=== PATIENT | female | born 1935 | race Caucasian/White ===

== ENCOUNTER 2016-11-21 10:43 | Day surgery (SDC) | payer MEDICARE, OTHER ==
[~2016-11-21] VITALS: Ht 165.1 cm; Wt 93.0 kg
[~2016-11-21 10:43] MED LIST: 0.9% Sodium Chloride 1,000 ML IV SCH; ASCO500T9 PO; CA C1TAB28 PO; CHOL10008 PO; LETR2.5T4 PO; LEVO112T4 PO; LISI-567 PO; LISI10TA2 PO; MULT-36 PO; PROP10DR4 OP; RANI150T11 PO; SIMV10TA4 PO; Sodium Chloride LOK Flush 10 mL Syringe IV PRN; fentaNYL-PF 50 mCg/mL 2 mL Inj IVPUSH PRN
[2016-11-21 11:18] VITALS: BP 155/91; PULSE 87; RESP 16; O2SAT 98
--- NOTE | 2016-11-21 12:53 | PCM.ENDCOL ---
Colonoscopy Date of Service: Nov 21, 2016 Physician Yoni Murrieta MD Pre Procedure Diagnosis: Screening and personal history of colon polyp Post Procedure Dx & Findings: Polyp hemorrhoids diverticuli Procedure Colonoscopy Prep adequate Withdrawal time 12 minutes After unremarkable rectal examination the Olympus video colonoscope was inserted patient's anal canal and was advanced to cecum. Landmarks were identified including the ileocecal valve and appendiceal orifice. Scope was withdrawn systematically. Visualized colonic mucosa showed healthy shiny mucosa with normal healthy-appearing vasculature. In the ascending colon, there were 2 polyps. One was 3 mm in size and the other was 1 mm in size. 3 mm polyp was removed completely using cold snare. 1 mm polyp was removed completely using cold forceps. From the descending colon into the distal sigmoid colon, multiple midsized diverticuli noted. In the rectum retroflexion was done which showed hemorrhoids. Anal canal was inspected carefully on the way out and hemorrhoids noted. Impression Polyps 2 status post complete removal Diverticuli Personal history of colon polyps Hemorrhoids Recommendation Repeat colonoscopy in 5 years Diverticular diet Presedation Assessment Risks and Benefits Informed consent was obtained from the patient after all risks and benefits including but not limited to drug reaction, infection, pain, bleeding, perforation, as well as alternatives were discussed. Patient monitoring Continuous pulse oximetry, cardiac monitoring, blood pressure monitoring, IV access, and oxygen at 2L per nasal cannula. Periprocedural Fentanyl: Fentanyl 100mcg Incrementally Midazolam: Midazolam 4mg Incrementally Complications There were no periprocedural complications identified. Post Procedure Plan Post Procedure Recommendations 1. Restrict activities today. 2. Resume normal activities in the morning. 3. Resume medications. 4. Patient informed of normal post procedure side effects as bloating, drowsiness, blood streaking in the stool. 5. average risk CRCS. If colon polyps come back as: -Hyperplastic- can repeat colonoscopy in 10 years -Tubular adenoma- repeat colonoscopy in 5 years -Tubulovillous/villous adenoma- repeat colonoscopy in 3 years -If any dysplasia- return to clinic as soon as possible 6. Please don't hesitate to call me with any questions. Yoni Murrieta MD Nov 21, 2016 12:53
[2016-11-21 12:56] VITALS: BP 163/80; PULSE 56; RESP 14; O2SAT 100
[2016-11-21 13:06] VITALS: BP 152/75; PULSE 60; RESP 14; O2SAT 100
[2016-11-21 13:16] VITALS: BP 158/78; PULSE 63; RESP 16; O2SAT 100
--- NOTE | 2016-11-22 14:02 | PATH ---
SURGICAL PATHOLOGY Attending Physician:Yoni Murrieta M.D. CASE STATUS: Signed Out PATIENT NAME: CLAIRE GREENE PID: [id number] : 1935 DATE COLLECTED:11/21/2016 22:22 SPECIMEN: Colon, Biopsy CLINICAL HISTORY: COLON POLYPS 1). ASCENDING COLON POLYP FINAL DIAGNOSIS: 1.ASCENDING COLON POLYP: TUBULAR ADENOMA. ICD10 CODE D12.6 GROSS DESCRIPTION: The specimen is received in one formalin filled container labeled with the patient's name, sublabeled "ascending colon polyp" and consists of 3 portions of tissue which aggregate to 0.3 x 0.3 x 0.3 CM. The specimen is entirely submitted in one cassette. 11/21/2016 [facility] MICRO DESCRIPTION: See diagnosis. ICD-9 CODES: CPT CODES: 1: 71684 Electronically Signed Out Kolby Sainz MD [facility] Pathology [facility] [address], [place] [address] Technical component performed at [facility], [facility] [address], [place], [address]
== END 2016-11-21 23:59 | disposition home or self-care (01) ==
LOC: END 10:43
PROVIDERS: ATTEND Internal Medicine
DX: Z12.11 Encounter for screening for malignant neoplasm of colon (principal); D12.2 Benign neoplasm of ascending colon; Z86.010 Personal history of colon polyps; K57.30 Diverticulosis of large intestine without perforation or abscess without bleeding; K64.9 Unspecified hemorrhoids; I48.0 Paroxysmal atrial fibrillation; E11.9 Type 2 diabetes mellitus without complications; I10 Essential (primary) hypertension; E03.9 Hypothyroidism, unspecified; Z85.3 Personal history of malignant neoplasm of breast
CPT/HCPCS: 45380; 45385; 88305; 99153; G0500; J2250; J3010; J7030

== ENCOUNTER 2017-03-10 10:36 | Observation (INO) | payer MEDICARE, OTHER ==
[~2017-03-10] VITALS: Ht 166.4 cm; Wt 92.2 kg
[2017-03-10] VITALS (7 sets, daily range): BP systolic 153–200; BP diastolic 74–94; PULSE 62–72; RESP 14–18; O2SAT 95–99
[~2017-03-10 10:36] MED LIST changes: -0.9% Sodium Chloride 1,000 ML IV SCH; -ASCO500T9 PO; -CA C1TAB28 PO; -LISI10TA2 PO; -MULT-36 PO; -PROP10DR4 OP; -RANI150T11 PO; -Sodium Chloride LOK Flush 10 mL Syringe IV PRN; -fentaNYL-PF 50 mCg/mL 2 mL Inj IVPUSH PRN
--- NOTE | 2017-03-10 11:09 | ED.REPORT ---
HPI-Neurologic Deficit Date of Service Mar 10, 2017 ED Provider: Amanda Ellis MD The pt is a 82 y/o female w/ a hx of hypothyroidism, HTN, breast cancer, and hyperlipidemia presenting to the ED complaining of R facial numbness. When she woke up this morning she was feeling dizzy and went to her PCP. At the doctor's office her scalp being feeling "prickly"and the R side of her face began to feel numb shortly after. She is not experiencing any dizziness currently but does report drifting to the left while walking. She notes the scalp tingling present for over a month. She believes there may have been some numbness to the side of her face last night but she is uncertain. She reports Letrozole causing her to experience severe dizziness and her legs and arms feeling numb for 8 hours after. She was also diagnosed w/ vertigo 4 weeks ago by her PCP. Nursing Notes Stated Complaint: POSS STROKE Chief Complaint: Neuro Symptoms/ Deficits Nursing Notes Reviewed: Yes Allergies: Coded Allergies: Penicillins (Verified Allergy, Severe, ANAPHYLAXIS, 03/10/17) Sulfa (Sulfonamide Antibiotics) (Verified Allergy, Severe, RASH, ANAPHYLAXIS, 03/10/17) aspirin (Verified Allergy, Severe, ORAL SWELLING, ANAPHYLAXIS, 03/10/17) bacitracin (Verified Allergy, Severe, RASH, 03/10/17) codeine (Verified Allergy, Severe, BURNING PAIN, RASH, 03/10/17) gramicidin D (Verified Allergy, Severe, RASH, 03/10/17) iodine (Verified Allergy, Severe, PAIN, REDNESS, ANAPHYLAXIS, 03/10/17) letrozole (Verified Allergy, Severe, "hallucinations, dizziness", 03/10/17) patient with reaction to letrozole made per the [employer]. patient able to take letrozole that she obtains per [employer] that is not made by the [employer]. Aminoglycosides (Verified Allergy, Unknown, SWELLING,REDNESS, 03/10/17) azithromycin (Verified Allergy, Unknown, 03/10/17) neomycin (Verified Allergy, Unknown, SWELLING, REDNESS, RASH, 03/10/17) polymyxin B (Verified Allergy, Unknown, SWELLING, REDNESS, RASH, 03/10/17) tetanus and diphtheria toxoids (Verified Adverse Reaction, Severe, SWELLING AT INJ SITE, 03/10/17) Scheduled Ascorbate Calcium (Vitamin C) 500 Mg Tablet 250 MG PO BID Cholecalciferol (Vitamin D3) (Vitamin D3) 1,000 Unit Tab.chew 1,000 UNIT PO DAILY Letrozole (Letrozole) 2.5 Mg Tablet 2.5 MG PO DAILY Levothyroxine (Levothyroxine) 112 Mcg Tablet 112 MCG PO DAILY Lisinopril (Lisinopril) 20 Mg Tablet 20 MG PO DAILY Multivitamin (Multivitamins) 1 Each Capsule 1 EACH PO DAILY Ranitidine (Ranitidine) 150 Mg Capsule 150 MG PO BID Risedronate Sodium (Risedronate Sodium) 35 Mg Tablet 35 MG PO every Friday Simvastatin (Simvastatin) 10 Mg Tablet 10 MG PO HS General Time Seen by Provider: 11:00 Chief Complaint Other (R facial numbness ) Hx Obtained From: Patient Arrived By: Walk-in Sudden in Onset?: No Recent Healthcare: No recent hospitalization, Recent doctor visit Similar Sx Previous: Yes Risk Factors NIH Stroke Scale Level of Consciousness: Alert and responsive (0) Ask Month & Age: Both questions right (0) Open/Close Eyes/Hand Pyridine Recovery Operator: Performs both tasks (0) Horizontal EO Movements: None (0) Visual Morel: No visual loss (0) Facial Palsy: Normal symmetry (0) Right Arm Motor Drift (10s): No drift 10 sec (0) Left Arm Motor Drift (10s): No drift 10 sec (0) Right Leg Motor Drift (5s): No drift 5 sec (0) Left Leg Motor Drift (5s): No drift 5 sec (0) Limb Ataxia FNF/Heel-Orta: No ataxia (0) Sensation (Arms/Legs/Face): Pinprick less sharp (1) Language Aphasia: No aphasia, normal (0) Dysarthria: No dysarthria, normal (0) Extinction/Inattention: No exctinct/inattent (0) NIHSS Score: 1 Time NIHSS Performed: 11:30 Date NIHSS Performed: Mar 10, 2017 Past Medical History Past Medical History Hypothyroidism Cataracts HTN Breast cancer Arthritis Jaundice w/ hepatitis High cholesterol Past Surgical History Bilat masectomy cholecystectomy Hysterectomy Smoking History Unknown if Ever Smoker Ambulatory Status Independent Review of Systems Pt had a carotid ultrasound done a month ago when she was diagnosed w/ vertigo but has not had any head imaging done. Neurologic: Reports: Dizziness, Numbness (R side of face ), Problem walking ( Drifting to left ) Complete sys rev & neg: except as marked. Physical Exam Initial Vital Signs Vital Signs (First) Date Time Temp Pulse Resp B/P Pulse Ox O2 Delivery O2 Flow Rate FiO2 03/10/17 10:45 36.6 72 14 200/88 97 Room Air Initial VS: Reviewed General/Constitutional: Awake, Alert Behavior: Positive: Anxious, Tearful Head / Eyes: Atraumatic, Normocephalic Respiratory / Chest: Atraumatic, Breath sounds NL, Breath sounds = bilat, No respiratory distress, No rales, No rhonchi, No wheezing Cardiovascular: Heart rate NL, Regular rhythm, Heart sounds NL Neurologic: Oriented X3, Speech NL Very subtle R sided facial droop that does not include forehead Slight decrease in sensation in R forehead but not lower face Tingling sensation over entire scalp ENT: Atraumatic, Airway patent Neck: Atraumatic, Supple, Full range of motion Abdomen: Atraumatic, Soft, Non-tender Upper Extremity / MS: Atraumatic, Inspection NL, Full range of motion, Neurologic intact, Vascular intact Lower Extremity / Pelvis / MS: No deformity, Vascular intact RLE described as heavy Difficutly w/ heel to orta using L leg Skin: Atraumatic, Color NL, No rash, Warm, Dry Psychiatric: Affect NL, Mood NL Interpretation & Diagnostics Lab Results Interpretation Result Diagram: 03/10/17 1220 Test 03/10/17 12:20 White Blood Count 7.7th/mm3 (3.8-10.1) Red Blood Count 4.28mil/mm3 (3.90-5.20) Hemoglobin 13.2g/dL (12.0-15.6) Hematocrit 40.3% (35.0-46.0) Mean Corpuscular Volume 94.2fL (81-100) Mean Corpuscular Hemoglobin 30.8pg (27.0-35.0) Mean Corpuscular Hemoglobin Concent 32.8% (32.0-37.0) Red Cell Distribution Width 13.5% (12.3-15.4) Platelet Count 214bil/L (150-400) Neutrophils (%) (Auto) 63.8% (40-74) Lymphocytes (%) (Auto) 27.0% (14-46) Monocytes (%) (Auto) 6.3% (4-12) Eosinophils (%) (Auto) 2.5% (0-5) Basophils (%) (Auto) 0.3% (0-3) Troponin T 0.010ug/L (0.0-0.011) Triglycerides Level 150mg/dL (0-149) Cholesterol Level 160mg/dL (100-199) LDL Cholesterol, Calculated 77.000mg/dL (0-99) VLDL Cholesterol 30.000mg/dL HDL Cholesterol 53mg/dL (>39) Cholesterol/HDL Ratio 3.02 (0.0-4.4) Hold Dill Top Tube Received (Received) ECG Interpretation ECG Interpretation: Rate 61 Normal sinus rhythm LVH with secondary repol abnrm No ischemic Time: 11:43 Interpreted by: ED physician CT Head Interpretation IMPRESSION: No acute intracranial disease process. Dictated by: Dennise Penny MD, PhD on 03/10/2017 at 12:09 Approved by: Dennise Penny MD, PhD on 03/10/2017 at 12:11 Study: Head CT no contrast Interpretation / Wet Read by: Interpret - Radiologist Re-Eval/Medical Decision Med Decision/Clinical Course 12-year-old woman presents with odd constellation of neurologic symptoms entire scalp sensory abnormalities right side of the face with decreased motor decreased sensory very minimal right arm seems essentially normal right leg perhaps a "little more heavy" perhaps difficulty walking but then has baseline difficulties with balance and difficulty walking. At this point I am concerned that there is a mild right facial droop and with the odd constellation of symptoms stroke versus TIA or the most likely options. We will opt to admit her for additional stroke workup including stroke protocol MRI. Of note she did have carotid ultrasounds done about a month ago and they were unremarkable Discussed my concerns, findings and recommendations with her all questions answered This certainly is not a discrete onset with a clear time nor definitive diagnosis she does not meet any criteria for TPA for stroke Source of Hx: Old records Re-Evaluation/Progress : Time of Eval: 13:53 Re-Evaluation/Progress Note: Pt rechecked. Informed pt of need for admission. Pt understands and agrees with plan for admission. All questions addressed. Consultation : Referral / Consult Name: Shaw Beltrán MD Consulted With: Hospitalist Call Returned at: 13:30 Lead Neurodiagnostic Technologist: Will see patient, Agrees with eval, Agrees with plan, Accepts admit Counseled Regarding: Diagnosis, Lab results, Need for admission Discharge & Departure Impression: Primary Impression: Transient ischemic attack (TIA) Transient cerebral ischemia type: unspecified Qualified Code: G45.9 - Transient cerebral ischemic attack, unspecified Disposition: ADMITTED TO HOSPITAL Discharge Condition All VS Reviewed: Yes Condition: Stable Referrals: Nomi Fall DO (PCP) [facility] Attestation Portions of this note were transcribed by Paul Ace. I, Dr. Ellis personally performed the history, physical exam and medical decision-making; I reviewed and confirmed the accuracy of the information in the transcribed note. Signed by : Torito Woodard, 03/10/17 and 1204. copies to: Nomi Fall Shawna L MD Mar 10, 2017 11:09 Paul Ace Mar 10, 2017 11:34
--- NOTE | 2017-03-10 12:12 | DRSVH ---
PROCEDURE: CT BRAIN WITHOUT CONTRAST ([id number]) INDICATIONS: Stroke TECHNIQUE: Noncontrast 4.5 mm thick angled axial sections acquired from the foramen magnum to the vertex, with c oronal reformats. COMPARISON: None. FINDINGS: Image quality: Excellent. CSF spaces: Basal cisterns are patent. No extra-axial fluid collections. The ventricles are symmet kellen in size and shape. Brain: No intracranial bleeds or masses. There is cerebral volume loss for age, with resultant vent ricular and sulcal prominence. There are periventricular and deep white matter chronic small vessel ischemic changes. There is intracranial internal carotid artery atherosclerosis. Skull and face: Calvarium and visualized facial bones appear intact, without suspicious lesions. Sinuses: Visualized sinuses and mastoids are clear. IMPRESSION: No acute intracranial disease process. Dictated by: Dennise Penny MD, PhD on 03/10/2017 at 12:09 Approved by: Dennise Penny MD, PhD on 03/10/2017 at 12:11
[2017-03-10 12:39] LABS: BASOPHILS % (AUTO) 0.3 % (0-3); EOSINOPHILS % (AUTO) 2.5 % (0-5); MONOCYTES % (AUTO) 6.3 % (4-12); Mean Corpuscular Hemoglobin 30.8 pg (27.0-35.0); Mean Corpuscular Volume 94.2 fL (81-100); NEUTROPHILS % (AUTO) 63.8 % (40-74); Platelet Count 214 bil/L (150-400)
[2017-03-10] MEDS ORDERED: Alum-Mag Hydrox-Simeth 30 mL Suspension PO PRN (13:25)
[2017-03-10] MEDS ORDERED: Ondansetron 2 mg/mL 2 mL Inj IVPUSH PRN (13:25)
[2017-03-10] MEDS ORDERED: Polyethylene Glycol (PEG) 17 Gm Powder PO PRN (13:25)
[2017-03-10] MEDS ORDERED: ASCO-294 PO (13:55)
[2017-03-10] MEDS ORDERED: MULT1CAP33 PO (13:55)
[2017-03-10] MEDS ORDERED: RISE35TA13 PO (13:55)
[2017-03-10] MEDS ORDERED: CHOL10008 PO (13:55)
[2017-03-10] MEDS ORDERED: RANI150C4 PO (13:55)
--- NOTE | 2017-03-10 14:10 | NUR ---
Admission Pt report received from Sarah in ED. Pt stated she was seeing red lights, and felt dizzy this morning. She also stated she was feeling a tingling feeling on her scalp and right side of her face. Pt arrived to floor sba to bed from . Pt NPO due to r/o TIA. ST to work with patient for diet. Pt on tele 67. Pt states she can become a bit dizzy when walking, also c/o sob when exerting a lot. Pt VSS. Pt on RA.
--- NOTE | 2017-03-10 16:16 | NUR ---
Evaluation completed. Please go to "Notes" then click on "Assessments and Notes" (bottom left corner of screen). Then select appropriate discipline tab on top of screen.
[2017-03-10] MEDS ORDERED: Labetalol 5 mg/mL 20 mL Inj IV PRN (16:30)
[2017-03-10] MEDS: Heparin 5,000 Unit/mL Inj SUBQ SCH (17:56)
--- NOTE | 2017-03-10 19:07 | PCM.HPMED ---
Subjective Date of Service Mar 10, 2017 Primary Provider: Admitting Physician: Shaw Beltrán MD Primary Care Physician: Nomi Fall DO Attending Physician: Shaw Beltrán MD Chief Complaint: Dizziness, head feels strange, right-sided facial numbness History of Present Illness: 82-year-old female presented to the emergency room complaining of right facial numbness. She has been feeling dizzy and having "a prickly sensation on the right side and top of her head. This has never happened before. She was diagnosed with vertigo about 3 weeks so ago that had resolved. She denies headache, weakness dysarthria/dysphagia. She has been feeling well for the last couple weeks and just woke up feeling strangely just this morning. Review of Systems: Gen.: No fevers chills weight loss weight gain Eyes: no visual disturbances or blurring vision HEENT: No nose/throat drainage, no pain in ears or throat, no hearing loss Lymph: No lymph nodes noted Cardiac: No chest pain, orthopnea, PND, palpitations , pedal edema or dyspnea on exertion Pulmonary: no cough, wheezing or bringing up of sputum GI: No anorexia nausea vomiting blood or black in the stool : no dysuria hematuria urinary frequency or decrease in urine output Musculoskeletal: Joint swelling no joint pain no new muscle aches or back pain Neuro: No syncope, seizures no loss of consciousness no new focal weakness, numbness or tingling of face/scalp Vertiginous type dizziness Psychiatric: New new anxiety insomnia or depression Endocrine: No new heat or cold intolerances polyuria or polydipsia Hematology: No lymphadenopathy or easy bleeding or bruising noted skin: No new rashes, stasis dermatitis Allergies Coded Allergies: Penicillins (Verified Allergy, Severe, ANAPHYLAXIS, 03/10/17) Sulfa (Sulfonamide Antibiotics) (Verified Allergy, Severe, RASH, ANAPHYLAXIS, 03/10/17) aspirin (Verified Allergy, Severe, ORAL SWELLING, ANAPHYLAXIS, 03/10/17) bacitracin (Verified Allergy, Severe, RASH, 03/10/17) codeine (Verified Allergy, Severe, BURNING PAIN, RASH, 03/10/17) gramicidin D (Verified Allergy, Severe, RASH, 03/10/17) iodine (Verified Allergy, Severe, PAIN, REDNESS, ANAPHYLAXIS, 03/10/17) letrozole (Verified Allergy, Severe, "hallucinations, dizziness", 03/10/17) patient with reaction to letrozole made per the [employer]. patient able to take letrozole that she obtains per [employer] that is not made by the [employer]. Aminoglycosides (Verified Allergy, Unknown, SWELLING,REDNESS, 03/10/17) azithromycin (Verified Allergy, Unknown, 03/10/17) neomycin (Verified Allergy, Unknown, SWELLING, REDNESS, RASH, 03/10/17) polymyxin B (Verified Allergy, Unknown, SWELLING, REDNESS, RASH, 03/10/17) tetanus and diphtheria toxoids (Verified Adverse Reaction, Severe, SWELLING AT INJ SITE, 03/10/17) Home Medications Ascorbate Calcium (Vitamin C) 500 Mg Tablet 250 MG PO BID Cholecalciferol (Vitamin D3) (Vitamin D3) 1,000 Unit Tab.chew 1,000 UNIT PO DAILY Letrozole (Letrozole) 2.5 Mg Tablet 2.5 MG PO DAILY Levothyroxine (Levothyroxine) 112 Mcg Tablet 112 MCG PO DAILY Lisinopril (Lisinopril) 20 Mg Tablet 20 MG PO DAILY Multivitamin (Multivitamins) 1 Each Capsule 1 EACH PO DAILY Ranitidine (Ranitidine) 150 Mg Capsule 150 MG PO BID Risedronate Sodium (Risedronate Sodium) 35 Mg Tablet 35 MG PO every Friday Simvastatin (Simvastatin) 10 Mg Tablet 10 MG PO HS PMH Hypothyroidism Cataracts HTN Breast cancer Arthritis Jaundice w/ hepatitis High cholesterol Past Surgical History Bilat masectomy cholecystectomy Hysterectomy SOCIAL HISTORY: The patient is and had worked part-time as an financial reporting accountant. Patient has three daughters. The patient denies any tobacco, alcohol, or drug use. FAMILY HISTORY: Patient's father had pancreatic cancer. One of patient's sisters had breast cancer and AL. The patient has another sister who has breast cancer, kidney cancer, and uterine cancer. Social History Hx Alcohol Use: No Hx Substance Use: No Hx Tobacco Use: No Smoking Status: Unknown if Ever Smoker Exam Vital Signs Vital Sign - Last Date Time Temp Pulse Resp B/P Pulse Ox O2 Delivery O2 Flow Rate FiO2 03/10/17 17:03 36.6 64 18 192/94 99 Room Air Exam Gen.- A+ O 3 no apparent distress. Heavy white female sitting up in a chair Eyes- open conjunctiva clear, pupils equal nonicteric Mouth- oral mucosa moist, no exudate ENT- ears normal, nose normal Neck- supple/trach midline CVS- RRR no murmur or gallop, bilateral pedal edema Lungs- CTA GI- NABS/NT soft Musc- moving 4 no obvious deformity Neuro- cranial nerves II through XII intact to gross examination, nonfocal 5 out of 5 strength upper and lower extremities Finger-nose slightly less coordinated on left Finger-thumb bilateral equal, heel perez also bilateral equal and intact No pronator drift Skin- warm and dry, no rashes/lesions/wounds noted Psych- pleasant and appropriate, Lab and Diagnostics Result Diagram: 03/10/17 1220 Assessment & Plan 82-year-old female presents with vertigo and right-sided facial numbness and "prickly sensation to scalp ". Most of her symptoms have resolved at this point in time when I am seeing her. She was admitted in 2012 for atrial fibrillation/A flutter and she was put on warfarin but this was discontinued shortly thereafter his cardiology could not find any evidence for atrial fibrillation thereafter. #TIA?- -We will obtain MRI head -Carotid Doppler done last month normal -Echocardiogram ordered -Serial neurologic exams are on telemetry -Patient is aspirin allergic so she is not on any anticoagulation will start Plavix. #Breast cancer- old letrozole for now probably resume on discharge #Hypothyroidism- continue thyroid medication check TSH #HTN/lipids- hold lisinopril permissive hypertension, continue statin. #Prophylaxis- DVT with SCDs and enoxaparin, GI patient already on H2 RA #Disposition- patient is a full code (contrary to previous admission )confirmed with her from home. Shaw Beltrán MD Mar 10, 2017 19:06
--- NOTE | 2017-03-10 20:29 | NUR ---
Pt off floor Pt picked up by Radiology for MRI at 2027 by wheelchair. 1mg Lorazepam per order and pt request administered. Tele removed per order.
[2017-03-10] MEDS ORDERED: Famotidine 20 mg/50 mL NS Premix IV SCH (20:30)
--- NOTE | 2017-03-10 21:23 | DRSVH ---
PROCEDURE: MRI BRAIN WITHOUT CONTRAST ([id number]) INDICATIONS: Vertigo, history of breast cancer TECHNIQUE: Non-contrast axial T1 spin echo, axial T2 fast spin echo, sagittal and axial FLAIR, coronal T2 fast s pin echo, axial gradient echo, axial diffusion and ADC through the brain. COMPARISON: [facility], CT, CT BRAIN WO CON, 03/10/2017, 12:02. [facility], MR, STROKE PROTOCOL (PNL), 11/05/2011, 11:50. FINDINGS: Image quality: Excellent. CSF spaces: Ventricles appear symmetric in size and shape. Basal cisterns are patent. No extra-axi al fluid collections. Brain: No intracranial bleeds or mass effects. There is cerebral volume loss for age. There are pe riventricular and deep white matter chronic small vessel ischemic changes. Brainstem appears normal. Diffusion-weighted images show no acute ischemic insults. No chronic ischemic insults. Normal int ravascular flow voids are present. Skull and face: Calvarial bone marrow is normal in signal. Orbits are normal. Sinuses: Sinuses and mastoids are clear. IMPRESSION: 1. No acute intracranial process. 2. Mild to moderate atrophy and chronic microvascular ischemic changes. Dictated by: Sanjana Rouse M.D. on 03/10/2017 at 21:19 Approved by: Sanjana Rouse M.D. on 03/10/2017 at 21:21
--- NOTE | 2017-03-10 21:25 | NUR ---
Pt back on floor Pt arrived back onto MOC floor via wheelchair. VSS. Pt relaxed and credits Ativan for a more enjoyable experience with MRI. Family at bedside.
[2017-03-11] MEDS: Heparin 5,000 Unit/mL Inj SUBQ SCH ×2 (00:48→08:30)
[2017-03-11 01:41] VITALS: BP 166/81; PULSE 64; RESP 16; O2SAT 97
[2017-03-11 06:18] VITALS: BP 163/90; PULSE 64; RESP 16; O2SAT 95
[2017-03-11 06:29] VITALS: PULSE 62
[2017-03-11 08:49] VITALS: PULSE 63
[2017-03-11 10:45] VITALS: BP 155/88; PULSE 67; RESP 14; O2SAT 95
--- NOTE | 2017-03-11 11:16 | PCM.DIMED ---
Discharge Instructions Date of Service Mar 11, 2017 Dates of Hospitalization Mar 10, 2017 at 13:33 Discharge Diagnosis Discharge Diagnosis Right facial numbness, tingling possible TIA No objective evidence for stroke, possibilities include atypical migraines and atypical seizures in addition to benign positional vertigo (inner ear dizziness) . Test Results Test Results Workup unrevealing Diet Discharge Diet: Heart Healthy, Diabetic Activity Discharge Activity: No restrictions Call your provider Call your provider for: Weakness (unilateral), Other (numbness, loss of vision , loss of consciousness come back to emergency room) Patient Instructions Follow-up plan With primary care provider in the next week and neurology if desired Follow-up Provider: Nomi Fall DO Follow-up with PCP in: 1 week Provider: Cheyenne Ornelas MD Follow-up in: Other (next available when necessary) Shaw Beltrán MD Mar 11, 2017 11:16
[2017-03-11] MEDS ORDERED: LEVO125T6 PO (11:32)
[2017-03-11] MEDS ORDERED: CLOP75TA28 PO (11:32)
--- NOTE | 2017-03-11 13:35 | NUR ---
Case Management: Late entry for 03/11/17 @ 1015 - STEIN and Medicare Part D info given to pt at bedside. Pt's cousin and cousin's dtr present, pt stated ok for them to be present for discussion. Questions answered, copy given to pt, signed original STEIN placed on chart. MYNOR Samuels RN
--- NOTE | 2017-03-11 14:02 | NUR ---
Social Work-initial assessment/ discharge: Data:See initial assessment. Pt is 82 y/o female who was admitted on 03/10/17 for TIA per H&P. Pt's insurance is [employer] and PCP is Nomi Fall DO. EMR reviewed. Pt's readmission score is 3- high. SW met with pt and daughter Bonita at bedside to discuss discharge planning, SW role explained. Pt is alert and oriented x3. Pt resides at home alone on [address] where she remains independent with ADLs. Pt does drive and does have a cane to use at home. Pt has no HH or SNF history. PT/OT have cleared pt for home with outpt services and use of cane. Pt has no nursing home care insurance or VA benefits. Pt confirms she has completed DPOA/advanced directive paperwork, SW encouraged a copy to be brought in. Daughter confirms she will be providing transport home at discharge. No discharge needs identified. All updated and agreeable to plan. Assessment:Pt who is independent at baseline. Plan:Pt to discharge home today via POV. No discharge needs identified. All updated and agreeable to plan. CASA Chin Addendum: 03/11/17 at 1406 by CRUZ PAULSON Amended: Links added.
--- NOTE | 2017-03-11 14:07 | PCM.DC.MED ---
Discharge Summary Date of Service Mar 11, 2017 Dates of Hospitalization Date of Hospital Admission Mar 10, 2017 at 13:33 Date of Discharge: Mar 11, 2017 Providers: Admitting Physician: Malena Beltrán MD Primary Care Physician: Nomi Fall DO Attending Physician: Malena Beltrán MD Diagnosis at Time of Discharge Diagnosis at Time of Discharge Right facial numbness, tingling possible TIA No objective evidence for stroke, possibilities include atypical migraines and atypical seizures in addition to benign positional vertigo (inner ear dizziness) . Consultations None Procedures ECG 12 Lead Rate 61, QTC 461 ms 03/10 personally/currently reviewed by Leigh Ann 03/11 * Poor quality data, interpretation may be affected . Sinus rhythm . Probable LVH with secondary repol abnrm * Nonspecific T abnrm, anterolateral leads . No previous ECG available for comparison Cardiac Echo Impression Echo pending 03/11 Echocardiogram Report: Maikel Faria on 11/26/2012 10:39 The left ventricle is normal in size, wall thickness, and systolic function without any focal wall motion abnormalities. The right ventricle is normal in size and function. Right ventricular systolic pressure estimate is 20-25 mmHg. The left atrium is mildly dilated. There is mild tricuspid regurgitation. There is no other significant valvular heart disease. Reading Physician:FABI Brief History 82-year-old female presented to the emergency room complaining of right facial numbness. She has been feeling dizzy and having "a prickly sensation on the right side and top of her head. This has never happened before. She was diagnosed with vertigo about 3 weeks so ago that had resolved. She denies headache, weakness dysarthria/dysphagia. She has been feeling well for the last couple weeks and just woke up feeling strangely just this morning. Hospital Course 82-year-old female presents 03/10 with vertigo and right-sided facial numbness and "prickly sensation to scalp ". Most of her symptoms have resolved at this point in time when I am seeing her. She was admitted in 2012 for atrial fibrillation/A flutter and she was put on warfarin but this was discontinued shortly thereafter his cardiology could not find any evidence for atrial fibrillation thereafter. 03/11 patient's symptoms have pretty much completely resolved. Call this a TIA in place around clopidogrel due to aspirin allergy. Recommend follow-up with neurology when necessary regarding symptoms and opinion whether this was TIA for possible atypical migraine versus seizure type symptoms. #TIA?- -MRI unrevealing -Carotid Doppler done last month normal -Echocardiogram pending -Serial neurologic exams NIHSS 1 -Patient is aspirin allergic so she is not on any anticoagulation will start Plavix. -Question of history of atrial fibrillation patient was seen by Dr. Hess 2012 and anticoagulation was discontinued. No evidence on monitoring or event of embolic disease on MRI at this time. Patient does not need warfarin. #Breast cancer- resume letrozole on discharge #Hypothyroidism- continue thyroid medication check TSH #HTN/lipids-resume lisinopril, continue statin. #Prophylaxis- DVT with SCDs and enoxaparin, GI patient already on H2 RA #Disposition- patient is a full code (contrary to previous admission )confirmed with her from home. Exam Vital Signs (Last) Date Time Temp Pulse Resp B/P Pulse Ox O2 Delivery O2 Flow Rate FiO2 03/11/17 10:45 36.8 67 14 155/88 95 03/11/17 06:18 Room Air Exam Gen.- A+ O 3 no apparent distress. Heavy white female sitting up in a chair Eyes- open conjunctiva clear, pupils equal nonicteric ENT- ears normal, nose normal Neck- supple/trach midline CVS- RRR Lungs-normal nonlabored GI-generous pannus Musc- moving 4 no obvious deformity Neuro- cranial nerves II through XII intact to gross examination, nonfocal Skin- warm and dry, no rashes/lesions/wounds noted Psych- pleasant and appropriate, Test 03/10/17 12:20 03/10/17 15:37 White Blood Count 7.7th/mm3 (3.8-10.1) Red Blood Count 4.28mil/mm3 (3.90-5.20) Hemoglobin 13.2g/dL (12.0-15.6) Hematocrit 40.3% (35.0-46.0) Mean Corpuscular Volume 94.2fL (81-100) Mean Corpuscular Hemoglobin 30.8pg (27.0-35.0) Mean Corpuscular Hemoglobin Concent 32.8% (32.0-37.0) Red Cell Distribution Width 13.5% (12.3-15.4) Platelet Count 214bil/L (150-400) Neutrophils (%) (Auto) 63.8% (40-74) Lymphocytes (%) (Auto) 27.0% (14-46) Monocytes (%) (Auto) 6.3% (4-12) Eosinophils (%) (Auto) 2.5% (0-5) Basophils (%) (Auto) 0.3% (0-3) Hemoglobin A1c 6.3% (4.8-5.6) Troponin T 0.010ug/L (0.0-0.011) Triglycerides Level 150mg/dL (0-149) Cholesterol Level 160mg/dL (100-199) LDL Cholesterol, Calculated 77.000mg/dL (0-99) VLDL Cholesterol 30.000mg/dL HDL Cholesterol 53mg/dL (>39) Cholesterol/HDL Ratio 3.02 (0.0-4.4) Hold Dill Top Tube Received (Received) Hold Urine Received (Received) Discharge Medications Discharge Medications Ascorbate Calcium (Vitamin C) 500 Mg Tablet 250 MG PO BID (Reported) Cholecalciferol (Vitamin D3) (Vitamin D3) 1,000 Unit Tab.chew 1,000 UNIT PO DAILY (Reported) Clopidogrel (Clopidogrel) 75 Mg Tablet 75 MG PO DAILY Prescribed by: MALENA BELTRÁN MD Letrozole (Letrozole) 2.5 Mg Tablet 2.5 MG PO DAILY (Reported) Levothyroxine (Levothyroxine) 125 Mcg Tablet 125 MCG PO DAILY Prescribed by: MALENA BELTRÁN MD Lisinopril (Lisinopril) 20 Mg Tablet 20 MG PO DAILY (Reported) Multivitamin (Multivitamins) 1 Each Capsule 1 EACH PO DAILY (Reported) Ranitidine (Ranitidine) 150 Mg Capsule 150 MG PO BID (Reported) Risedronate Sodium (Risedronate Sodium) 35 Mg Tablet 35 MG PO every Friday ( Reported) Simvastatin (Simvastatin) 10 Mg Tablet 10 MG PO HS (Reported) Followup Plan Disposition: To home Follow-up plan With primary care provider in the next week and neurology if desired Discharge Diet: Heart Healthy, Diabetic Discharge Activity: No restrictions Follow-up Provider: Nomi Fall DO Follow-up with PCP in: 1 week Provider: Cheyenne Ornelas MD Follow-up in: Other (next available when necessary) Time spent Greater than 30 minutes Malena Beltrán MD Mar 11, 2017 14:07
--- NOTE | 2017-03-11 14:33 | DRSVH ---
Formerly [facility] [address] [place] [address] Echocardiogram Report Name: CLAIRE GREENE LStudy Date: 03/11/2017 Height: 66 in Hospital Exam Location: [facility] Weight: 203 lb Gender: Female BSA: 2.0 m2 : 1935 Age: 82 yrs BP: 66/203 mmHg Reason For Study: TIA Ordering Physician: SNOW TEAM Performed By: Fredy Whaley Referring Physician: Nomi Fall Interpretation Summary The left ventricle is normal in size. Left ventricular systolic function is normal without focal wall motion abnormalities. The ejection fraction is estimated to be 60-65%. The right ventricle is normal in size and function. The right ventricular systolic pressure is estimated at 25 mmHg assuming a right atrial pressure of 3 mm Hg. The left atrium is mildly dilated. Right atrial size is normal. There is no significant valvular heart disease. The aortic root is normal size. No obvious echocardiographic findings that would explain patient's TIA. No significant changes since prior study on 11/26/3012. Procedure: A two-dimensional transthoracic echocardiogram with color flow and Doppler was performed. The study quality was technically good. Comparison is made with the echocardiogram of 11/26/12. The patient was in normal sinus rhythm during the exam. Left Ventricle: The left ventricle is normal in size. Left ventricular wall thickness is borderline increased. Left ventricular systolic function is normal without focal wall motion abnormalities. The ejection fraction is estimated to be 60-65%. Right Ventricle: The right ventricle is normal in size and function. Atria: The left atrium is mildly dilated. Right atrial size is normal. The interatrial septum is intact with no evidence for an atrial septal defect. Mitral Valve: The mitral valve is normal in structure and function. There is trace mitral regurgitation. Aortic Valve: The aortic valve is normal in structure and function. The aortic valve is trileaflet. The aortic valve opens well. No aortic regurgitation is present. Tricuspid Valve: The tricuspid valve is normal in structure and function. There is trace tricuspid regurgitation. The right ventricular systolic pressure is estimated at 25 mmHg assuming a right atrial pressure of 3 mm Hg. Pulmonic Valve: The pulmonic valve is normal in structure and function. There is trace pulmonic regurgitation. There is no significant valvular heart disease. Great Vessels: The aortic root is normal size. The dimensions of the ascending aorta are normal. The pulmonary artery is normal size. The IVC is of normal diameter and collapses greater than 50% with a sniff. This suggests a low right atrial pressure of 3 mm Hg. Pericardium/ Pleura There is no pericardial effusion. There is no pleural effusion. MMode/2D Measurements & Calculations LVIDd: 4.7 cm LA dimension: 3.8 cm RA long axis Ao root diam LVIDs: 2.7 cm FS: 42.5 % LA A2 area: 23.9 cm RA area Aortic Jxn: 2.4 cm EPSS: 0.16 cm LA A4 area: 20.8 cm asc Aorta Diam IVSd: 1.00 cm LA length (vol) : 16.2 cm LVPWd: 1.1 cm RA vol Ao Arch Diam (Prox LA vol: 79.5 ml : 42.1 ml Trans): 2.6 cm LA vol index RA : 20.9 mm2 IVC diam: 1.4 cm LV sahu. diameter/BSA LV sys. diameter/BSA (cm/m^2): 2.3 (cm/m^2): 1.3 Doppler Measurements & Calculations Ao V2 max MV E max alden MV E/A: 0.59 TR max alden : 156.2 cm/sec : 68.8 cm/sec Med Peak E' Alden : 233.7 cm/sec Ao max PG MV A max alden TR max P.8 mmHg : 9.8 mmHg : 116.2 cm/sec E/E' med: 13.7 PA V2 max: 92.8 cm/sec Ao mean PG Lat Peak E' Alden PA mean P.1 mmHg : 5.5 mmHg PA Accel Time: 0.12 sec E/E' lat: 6.7 E/e' average Pulm A Revs Dur MV A dur: 0.11 sec MV dec time Ao V2 mean PA V2 mean Pulm A Revs Dur - MV A : 0.29 sec : 111.8 cm/sec : 69.0 cm/sec Dur: -0.02 msec Ao V2 VTI: 32.8 cmPA pr(Accel) : 31.0 mmHg Reading Physician:PM
--- NOTE | 2017-03-11 15:07 | NUR ---
DISCHARGE Patient discharged home at 1505, off floor in wheelchair accompanied by daughter and STERILIZATION TECH. Vitals stable, denies pain and in no apparent distress. All belongings returned, IV discontinued intact. All instructions for diet, activity, medications, new prescriptions and follow-up reviewed with patient who reports understanding.
== END 2017-03-11 15:05 | disposition home or self-care (01) ==
LOC: SED 10:36 → MOC 13:33
PROVIDERS: ADMIT Hospitalist; ATTEND Hospitalist
DX: R20.0 Anesthesia of skin (principal); I10 Essential (primary) hypertension; E78.5 Hyperlipidemia, unspecified; E03.9 Hypothyroidism, unspecified; Z85.3 Personal history of malignant neoplasm of breast; Z90.13 Acquired absence of bilateral breasts and nipples; Z79.811 Long term (current) use of aromatase inhibitors; Z88.6 Allergy status to analgesic agent
CPT/HCPCS: 36415; 70450; 70551; 80061; 83036; 84484; 85025; 92610; 93005; 96374; 97161; 97166; 99285; C8929; G0378; J1644; J2060

== ENCOUNTER 2017-03-11 16:41 | Emergency (ER) | payer MEDICARE, OTHER ==
[~2017-03-11] VITALS: Ht 165.1 cm; Wt 90.8 kg
[~2017-03-11 16:41] MED LIST changes: +ASCO-294 PO; +CLOP75TA28 PO; +LEVO125T6 PO; +MULT1CAP33 PO; +RANI150C4 PO; +RISE35TA13 PO
[2017-03-11 16:47] VITALS: BP 173/80; PULSE 71; RESP 16; O2SAT 98
--- NOTE | 2017-03-11 17:28 | ED.REPORT ---
HPI-General Illness Date of Service Mar 11, 2017 ED Provider: Deandre Odell MD Patient is an 82 year old female with a hx of HTN, DM, and breast cancer who presents to the ED complaining of sudden onset diplopia at 1600 this evening while sitting in the car. Her symptoms started as diplopia at a distance and now it is just when objects are close to her face. Associated symptoms include generalized fatigue while walking just prior to onset. She denies focal weakness , headache, numbness, dizziness, or any other symptoms. She was just discharged from the hospital today after being admitted for observation and a workup for a TIA. She was given Plavix during the visit. Patient was diagnosed with vertigo 4 weeks ago by her PCP. Nursing Notes Stated Complaint: DOUBLE VISION Chief Complaint: Stroke Symptoms Nursing Notes Reviewed: Yes Allergies: Coded Allergies: Penicillins (Verified Allergy, Severe, ANAPHYLAXIS, 03/11/17) Sulfa (Sulfonamide Antibiotics) (Verified Allergy, Severe, RASH, ANAPHYLAXIS, 03/11/17) aspirin (Verified Allergy, Severe, ORAL SWELLING, ANAPHYLAXIS, 03/11/17) bacitracin (Verified Allergy, Severe, RASH, 03/11/17) codeine (Verified Allergy, Severe, BURNING PAIN, RASH, 03/11/17) gramicidin D (Verified Allergy, Severe, RASH, 03/11/17) iodine (Verified Allergy, Severe, PAIN, REDNESS, ANAPHYLAXIS, 03/11/17) letrozole (Verified Allergy, Severe, "hallucinations, dizziness", 03/11/17) patient with reaction to letrozole made per the [employer] comp[employer]ay. patient able to take letrozole that she obtains per mala that is not made by the [employer]. Aminoglycosides (Verified Allergy, Unknown, SWELLING,REDNESS, 03/11/17) azithromycin (Verified Allergy, Unknown, 03/11/17) neomycin (Verified Allergy, Unknown, SWELLING, REDNESS, RASH, 03/11/17) polymyxin B (Verified Allergy, Unknown, SWELLING, REDNESS, RASH, 03/11/17) tetanus and diphtheria toxoids (Verified Adverse Reaction, Severe, SWELLING AT INJ SITE, 03/11/17) Scheduled Ascorbate Calcium (Vitamin C) 500 Mg Tablet 250 MG PO BID Cholecalciferol (Vitamin D3) (Vitamin D3) 1,000 Unit Tab.chew 1,000 UNIT PO DAILY Clopidogrel (Clopidogrel) 75 Mg Tablet 75 MG PO DAILY Letrozole (Letrozole) 2.5 Mg Tablet 2.5 MG PO DAILY Levothyroxine (Levothyroxine) 125 Mcg Tablet 125 MCG PO DAILY Lisinopril (Lisinopril) 20 Mg Tablet 20 MG PO DAILY Multivitamin (Multivitamins) 1 Each Capsule 1 EACH PO DAILY Ranitidine (Ranitidine) 150 Mg Capsule 150 MG PO BID Risedronate Sodium (Risedronate Sodium) 35 Mg Tablet 35 MG PO every Friday Simvastatin (Simvastatin) 10 Mg Tablet 10 MG PO HS General Time Seen by MD: 16:59 Chief Complaint Other (diplopia) Hx Obtained From: Patient, Other family... Arrived By: Walk-in Sudden in Onset?: Yes Onset Occurred: Just prior to arrival Severity: Current: No pain currently Severity: Maximum: No pain Recent Healthcare: Recent hospitalization Similar Sx Previous: No Past Medical History Past Medical History Hypothyroidism Cataracts HTN Breast cancer Arthritis Jaundice w/ hepatitis B High cholesterol Diverticulitis Reports: Diabetes mellitus, GERD Past Surgical History Bilat masectomy cholecystectomy Hysterectomy Smoking History Unknown if Ever Smoker Social History Other Social History: Good social support Ambulatory Status Independent Review of Systems Full Review of Systems Constitutional: Reports: Fatigue Eyes: Reports: Diplopia Neurologic: Denies: Dizziness, Headache, Numbness, Weakness Complete sys rev & neg: except as marked. Physical Exam Nursing note and vitals reviewed. Constitutional: Well-developed, well-nourished. Not diaphoretic. Head: Normocephalic and atraumatic. No facial tenderness. Mouth/Throat: Oropharynx is clear and moist. No oropharyngeal exudate. Eyes: EOM are normal. Visual angulo intact. Pupils are 4-3 and equal, round, and reactive to light bilaterally. Neck: Supple, no tracheal deviation. Cardiovascular: Normal rate, regular rhythm. Equal and intact distal pulses throughout. Pulmonary/Chest: Effort normal and breath sounds normal. No respiratory distress. Musculoskeletal: Range of motion grossly intact, moving all extremities. No edema or tenderness appreciated. Neurological: AOx3. Grossly nonfocal exam. Strength and sensation intact and equal to bilateral upper and lower extremities. Normal finger to nose testing. No pronator drift. Cranial nerves II-XII intact. NIH Stroke Scale score of zero. Skin: Warm and dry, no rashes or pallor appreciated. Psychiatric: Appropriate mood and affect. Behavior appears normal. Vital Signs Vital Signs Date Time Temp Pulse Resp B/P Pulse Ox O2 Delivery O2 Flow Rate FiO2 03/11/17 21:32 63 16 188/76 96 Room Air 03/11/17 18:32 71 17 188/93 98 Room Air 03/11/17 16:47 36.6 71 16 173/80 98 Room Air Interpretation & Diagnostics Lab Results Interpretation Lab Results Interpretation: MRI: IMPRESSION: 1. No acute intracranial disease process. 2. No areas of acute or chronic infarction. 3. Mild, diffuse volume loss. 4. Mild periventricular and subcortical white matter chronic microvascular ischemic changes. 5. No intracranial hemorrhage. Dictated by: Dennise Penny MD, PhD on 03/11/2017 at 21:22 Approved by: Dennise Penny MD, PhD on 03/11/2017 at 21:29 CT Head Interpretation IMPRESSION: No acute intracranial disease process. Dictated by: Dennise Penny MD, PhD on 03/11/2017 at 17:47 Approved by: Dennise Penny MD, PhD on 03/11/2017 at 17:49 Study: Head CT no contrast Interpretation / Wet Read by: Interpret - Radiologist Re-Eval/Medical Decision Med Decision/Clinical Course 82F w/ recent admission for w/u of TIA/CVA back today w/ sudden onset of diplopia. This is improving at this time, only present intermittently. Acuity grossly intact, EOMI. No pain. Grossly nonfocal neuro exam w/ NIHSS of zero. Repeat imaging w/ no evidence of infarct acutely. Given w/u already done over the past several days, reasonable to d/c home w/ careful return precautions, PCP f/u tomorrow to discuss today's visit. Careful return precautions discussed at length. Patient agreeable to plan, no further questions. Time of Eval: 18:50 Re-Evaluation/Progress Note: Rechecked patient. She is still having episodes of double vision. Discussed plan for MRI and tenative plan for discharge with close follow up if MRI is normal. Patient understands and agrees with plan. All questions addressed at this time. Time of Eval: 21:34 Re-Evaluation/Progress Note: Rechecked patient. Discussed MRI results and plan for discharge. Patient understands and agrees with plan. All questions addressed at this time. Counseled Regarding: Diagnosis, Lab results, Need for follow-up, When/why to return to ED Discharge & Departure Primary Impression: Diplopia Disposition: Home Discharge Condition All VS Reviewed: Yes Condition: Stable Patient Instructions: Diplopia (ED) Additional Instructions: Thank you for entrusting us with your care. Your head CT and MRI did not indicate a dangerous cause for your symptoms at this time. I do not believe you had a stroke. Follow up with your primary doctor tomorrow. Call first thing in the morning and inform them of your visit today. Follow up with neurology. Return to the emergency department if you experience numbness, focal weakness, slurred speech, headache, or any other new or worsening symptoms. Referrals: Nomi Fall DO (PCP) Jake Camp MD Scribe Attestation Portions of this note were transcribed by Olga Adler. I, Dr. Odell personally performed the history, physical exam and medical decision-making; I reviewed and confirmed the accuracy of the information in the transcribed note. Signed by: Olga Adler 03/11/17, [id number] copies to: Nomi Fall William B MD Mar 11, 2017 17:28 OLGA ADLER Mar 11, 2017 17:37
--- NOTE | 2017-03-11 17:50 | DRSVH ---
PROCEDURE: CT BRAIN WITHOUT CONTRAST ([id number]) INDICATIONS: Stroke, double vision. TECHNIQUE: Noncontrast 4.5 mm thick angled axial sections acquired from the foramen magnum to the vertex, with c oronal reformats. COMPARISON: [facility], CT, CT BRAIN WO CON, 03/10/2017, 12:02. FINDINGS: Image quality: Excellent. CSF spaces: Basal cisterns are patent. No extra-axial fluid collections. The ventricles are symmet kellen in size and shape. Brain: No intracranial bleeds or masses. There is cerebral volume loss for age, with resultant vent ricular and sulcal prominence. There are periventricular and deep white matter chronic small vessel ischemic changes. There is intracranial internal carotid artery atherosclerosis. Skull and face: Calvarium and visualized facial bones appear intact, without suspicious lesions. Sinuses: Visualized sinuses and mastoids are clear. IMPRESSION: No acute intracranial disease process. Dictated by: Dennise Penny MD, PhD on 03/11/2017 at 17:47 Approved by: Dennise Penny MD, PhD on 03/11/2017 at 17:49
[2017-03-11 18:32] VITALS: BP 188/93; PULSE 71; RESP 17; O2SAT 98
[2017-03-11] MEDS ORDERED: LORazepam 1 mg Tablet PO ONE (18:55)
--- NOTE | 2017-03-11 21:31 | DRSVH ---
PROCEDURE: MRI BRAIN WITHOUT CONTRAST ([id number]) INDICATIONS: sudden onset double vision eval for CVA TECHNIQUE: Non-contrast axial T1 spin echo, axial T2 fast spin echo, sagittal and axial FLAIR, coronal T2 fast s pin echo, axial gradient echo, axial diffusion and ADC through the brain. COMPARISON: None. FINDINGS: Image quality: Excellent. CSF spaces: Ventricles appear symmetric in size and shape. Basal cisterns are patent. No extra-axi al fluid collections. Brain: No intracranial bleeds or mass effects. There is cerebral volume loss for age. There are mi ld periventricular and deep white matter chronic small vessel ischemic changes. Brainstem appears no rmal. Diffusion-weighted images show no acute ischemic insults. No chronic ischemic insults. Lindy l intravascular flow voids are present. Skull and face: Calvarial bone marrow is normal in signal. Orbits are normal. Sinuses: Sinuses and mastoids are clear. IMPRESSION: 1. No acute intracranial disease process. 2. No areas of acute or chronic infarction. 3. Mild, diffuse volume loss. 4. Mild periventricular and subcortical white matter chronic microvascular ischemic changes. 5. No intracranial hemorrhage. Dictated by: Dennise Penny MD, PhD on 03/11/2017 at 21:22 Approved by: Dennise Penny MD, PhD on 03/11/2017 at 21:29
[2017-03-11 21:32] VITALS: BP 188/76; PULSE 63; RESP 16; O2SAT 96
== END 2017-03-11 21:59 | disposition home or self-care (01) ==
LOC: SED 16:41
DX: H53.2 Diplopia (principal); I10 Essential (primary) hypertension; E11.9 Type 2 diabetes mellitus without complications; E03.9 Hypothyroidism, unspecified; K21.9 Gastro-esophageal reflux disease without esophagitis; Z88.8 Allergy status to other drugs, medicaments and biological substances; Z88.0 Allergy status to penicillin; Z88.2 Allergy status to sulfonamides; Z88.1 Allergy status to other antibiotic agents; Z88.6 Allergy status to analgesic agent; Z88.5 Allergy status to narcotic agent; Z91.041 Radiographic dye allergy status

== ENCOUNTER 2017-04-18 14:53 | Emergency (ER) | payer MEDICARE, OTHER ==
[~2017-04-18] VITALS: Ht 165.1 cm; Wt 93.2 kg
[~2017-04-18 14:53] MED LIST changes: -LEVO112T4 PO
[2017-04-18 15:14] VITALS: BP 172/85; PULSE 63; RESP 13; O2SAT 96
--- NOTE | 2017-04-18 15:29 | ED.REPORT ---
HPI-General Illness Date of Service Apr 18, 2017 ED Provider: Serafin Francisco MD Patient is an 82 year old female with a history of a possible TIA, diabetes, hypertension and hepatitis who presents to the ED via EMS due to bilateral facial warmth. Associated symptoms include a sharp pain in her right ear, a small headache that has since resolved and feeling like her right eye was swollen. She denies bladder or bowel dysfunction, shortness of breath, nausea, vomiting, diarrhea, chest pain, abdominal pain, troubles with urination or new leg swelling. The patient also reports that a week ago while she was in bed both of her arms began tingling but she was not experiencing any pain. She has also had a tingling sensation in the top of her head for the past month. Patient is currently on Plavix. The patient was seen at [facility] on 03/08/17 and had a normal brain CT and MRI. She came back 3 days later after experiencing diplopia, where a repeat CT and MRI was performed, which was unremarkable. Nursing Notes Stated Complaint: FACIAL NUMBNESS Chief Complaint: Neuro Symptoms/ Deficits Nursing Notes Reviewed: Yes Allergies: Coded Allergies: Penicillins (Verified Allergy, Severe, ANAPHYLAXIS, 04/18/17) Sulfa (Sulfonamide Antibiotics) (Verified Allergy, Severe, RASH, ANAPHYLAXIS, 04/18/17) aspirin (Verified Allergy, Severe, ORAL SWELLING, ANAPHYLAXIS, 04/18/17) bacitracin (Verified Allergy, Severe, RASH, 04/18/17) codeine (Verified Allergy, Severe, BURNING PAIN, RASH, 04/18/17) gramicidin D (Verified Allergy, Severe, RASH, 04/18/17) iodine (Verified Allergy, Severe, PAIN, REDNESS, ANAPHYLAXIS, 04/18/17) letrozole (Verified Allergy, Severe, "hallucinations, dizziness", 04/18/17) patient with reaction to letrozole made per the [employer] compnay. patient able to take letrozole that she obtains per [facility] that is not made by the [employer]. Aminoglycosides (Verified Allergy, Unknown, SWELLING,REDNESS, 04/18/17) azithromycin (Verified Allergy, Unknown, 04/18/17) neomycin (Verified Allergy, Unknown, SWELLING, REDNESS, RASH, 04/18/17) polymyxin B (Verified Allergy, Unknown, SWELLING, REDNESS, RASH, 04/18/17) tetanus and diphtheria toxoids (Verified Adverse Reaction, Severe, SWELLING AT INJ SITE, 04/18/17) Scheduled Ascorbate Calcium (Vitamin C) 500 Mg Tablet 250 MG PO BID Cholecalciferol (Vitamin D3) (Vitamin D3) 1,000 Unit Tab.chew 1,000 UNIT PO DAILY Clopidogrel (Clopidogrel) 75 Mg Tablet 75 MG PO DAILY Letrozole (Letrozole) 2.5 Mg Tablet 2.5 MG PO DAILY Levothyroxine (Levothyroxine) 125 Mcg Tablet 125 MCG PO DAILY Lisinopril (Lisinopril) 20 Mg Tablet 20 MG PO DAILY Multivitamin (Multivitamins) 1 Each Capsule 1 EACH PO DAILY Ranitidine (Ranitidine) 150 Mg Capsule 150 MG PO BID Risedronate Sodium (Risedronate Sodium) 35 Mg Tablet 35 MG PO every Friday Simvastatin (Simvastatin) 10 Mg Tablet 10 MG PO HS General Time Seen by MD: 15:28 Chief Complaint Other (bilateral facial numbness) Hx Obtained From: Patient Arrived By: Ambulance Sudden in Onset?: Yes Onset Occurred: 1 - 4 hours ago Symptom Duration: Since onset Location: : Face Severity: Current: No pain currently Recent Healthcare: Recent doctor visit Past Medical History Past Medical History Hypothyroidism Cataracts HTN Breast cancer Arthritis Jaundice w/ hepatitis B High cholesterol Diverticulitis Reports: Diabetes mellitus, GERD Past Surgical History Bilat masectomy cholecystectomy Hysterectomy Smoking History Unknown if Ever Smoker Social History Other Social History: Lives alone Ambulatory Status Independent Review of Systems Full Review of Systems Constitutional: Denies: Chills, Fever Ears / Nose / Throat: Reports: Earache right Respiratory: Denies: Non-productive cough, Shortness of breath Cardiovascular: Denies: Chest pain GI: Denies: Abdominal pain, Diarrhea, Nausea, Vomiting Female: Denies: Incontinence Musculoskeletal: Denies: Extremity swelling Skin: Denies Itching, Denies Rash Neurologic: Reports: Headache, Numbness, Denies: Bladder dysfunction, Bowel dysfunction, Weakness Complete sys rev & neg: except as marked. Physical Exam Vital Signs Vital Signs Date Time Temp Pulse Resp B/P Pulse Ox O2 Delivery O2 Flow Rate FiO2 04/18/17 15:14 36.1 63 13 172/85 96 Room Air Initial VS: Reviewed General/Constitutional: Awake, Alert, No acute distress Head / Eyes: Atraumatic, Normocephalic, PERRL, EOMI Neck: Atraumatic, Supple Respiratory / Chest: Atraumatic, Breath sounds NL, Breath sounds = bilat, No respiratory distress Cardiovascular: Heart rate NL, Regular rhythm, Heart sounds NL Upper Extremities Upper Extremity / MS: Atraumatic, Inspection NL, Full range of motion Lower Extremity / Pelvis / MS: Atraumatic, Inspection NL, Full range of motion Skin: Atraumatic, Color NL, No rash, Warm, Dry Neurologic: Speech NL, No motor deficits, No sensory deficits, Cerebellar NL, Memory NL NIH Stroke Scale Level of Consciousness: Alert and responsive (0) Ask Month & Age: Both questions right (0) (stated it was 2017 instead of 2016) Open/Close Eyes/Hand [employer] Counsel[employer]: Performs both tasks (0) Horizontal EO Movements: None (0) Visual Morel: No visual loss (0) Facial Palsy: Normal symmetry (0) Right Arm Motor Drift (10s): No drift 10 sec (0) Left Arm Motor Drift (10s): No drift 10 sec (0) Right Leg Motor Drift (5s): No drift 5 sec (0) Left Leg Motor Drift (5s): No drift 5 sec (0) Limb Ataxia FNF/Heel-Orta: No ataxia (0) Sensation (Arms/Legs/Face): No sensory loss (0) Language Aphasia: No aphasia, normal (0) Dysarthria: No dysarthria, normal (0) Extinction/Inattention: No exctinct/inattent (0) NIHSS Score: 0 Time NIHSS Performed: 15:42 Date NIHSS Performed: Apr 18, 2017 )( CVA Risk Stratification Age >60 Anticoag/bleed diathesis Diabetes mellitus Hypertension Prior CVA/TIA Risk factors reviewed Re-Eval/Medical Decision Med Decision/Clinical Course Given to recent brain MRIs and no objective abnormality, I believe outpatient follow-up with neurology is appropriate for this subjective bilateral sensory symptom. Time of Eval: 15:39 Re-Evaluation/Progress Note: Patient reports that her face now feels like its burning hot but no longer tingling. Time of Eval: 15:53 Re-Evaluation/Progress Note: Discussed plan for discharge and follow up with neurology. Patient understands and agrees to the plan. All questions were addressed. Counseled Regarding: Diagnosis, Lab results, Need for follow-up, When/why to return to ED Discharge & Departure Primary Impression: Tingling Disposition: Home Discharge Condition All VS Reviewed: Yes Condition: Stable Patient Instructions: Stroke (GEN) Additional Instructions: It does not appear that you were having a stroke today. Follow up with the neurologist as previously discussed. Follow up with your primary care physician next week. Return to the emergency department if you develop any new or concerning symptoms including weakness or difficulty speaking. Referrals: Nomi Fall DO (PCP) Cheyenne Ornelas MD Attestation Portions of this note were transcribed by Yeni Gibbs. I, Dr. Francisco personally performed the history, physical exam and medical decision-making; I reviewed and confirmed the accuracy of the information in the transcribed note. Signed by: Torito Hillman, 04/18/17 copies to: Nomi Fall Kirk H MD Apr 18, 2017 15:28 Nilam Gibbs Apr 18, 2017 15:40
[2017-04-18 16:42] VITALS: BP 173/77; PULSE 64; RESP 18; O2SAT 98
== END 2017-04-18 16:44 | disposition home or self-care (01) ==
LOC: EDBD 14:53 → SED 14:53
DX: R20.2 Paresthesia of skin (principal); H92.01 Otalgia, right ear; R51 Headache; I10 Essential (primary) hypertension; E11.9 Type 2 diabetes mellitus without complications; K21.9 Gastro-esophageal reflux disease without esophagitis; E03.9 Hypothyroidism, unspecified; E78.5 Hyperlipidemia, unspecified; Z88.0 Allergy status to penicillin; Z88.1 Allergy status to other antibiotic agents; Z88.2 Allergy status to sulfonamides; Z88.5 Allergy status to narcotic agent; Z88.7 Allergy status to serum and vaccine; Z88.8 Allergy status to other drugs, medicaments and biological substances